=== PATIENT | male | born 1935 | race Caucasian/White ===

== ENCOUNTER 2020-03-26 17:46 | Inpatient (IN) ==
[2020-03-26] MEDS: Cefdinir 300 MG CAPSULE PO SCH (21:24)
[2020-03-26] MEDS: Cholecalciferol (D-3) 1,000 UNIT (25MCG) TABLET PO SCH (21:24)
[2020-03-26] MEDS ORDERED: Ipratropium/Albuterol Neb 3 ML IH PRN (22:00)
[2020-03-26] MEDS: Budesonide/Formoterol 160/4.5 1 PUFF INH IH SCH (22:31)
[2020-03-27 05:37] LABS: Basophils # 0.1 K/mcL (0.0-0.2); Basophils % 0.4 %; Eosinophils # 0.1 K/mcL (0.0-0.6); Eosinophils % 0.3 %; Hematocrit 34.7 % (37.5-50.1); Hemoglobin 11.2 g/dL (12.9-16.9); Immature Granulocytes % 5.5 % (0-4); Lymphocytes # 1.4 K/mcL (0.6-4.6); Lymphocytes % 8.5 %; Mean Corpuscular HGB Conc 32.3 g/dL (31.6-35.5); Mean Corpuscular Hemoglobin 28.3 pg (28.0-33.3); Mean Corpuscular Volume 87.6 fL (83.0-100.0); Monocytes # 0.8 K/mcL (0.0-1.3); Monocytes % 5.2 %; Neutrophils # 12.7 K/mcL (1.6-8.9); Platelet Count 278 K/mcL (140-400); Red Blood Count 3.96 M/mcL (4.19-5.50); Red Cell Distribution Width 15.4 % (11.5-14.5); Segmented Neutrophils % 80.1 %; White Blood Count 15.9 K/mcL (4.3-11.1)
[2020-03-27 05:56] LABS: BUN/Creatinine Ratio 39 (6-26); Blood Urea Nitrogen 22 mg/dL (8-23); Calcium 8.3 mg/dL (8.6-10.3); Carbon Dioxide 36 mEq/L (23-29); Chloride 92 mEq/L (98-107); Glucose 72 mg/dL (70-105); Osmolality,Calculated 274 (280-300); Potassium 3.7 mEq/L (3.5-5.1); Sodium 131 mEq/L (136-145); eGFR For African Americans > 60 (> 60); eGFR For Non-African Americans > 60 (> 60)
[2020-03-27 06:12] LABS: Anisocytosis 1+ (Not Present); Platelet Estimate Normal (Normal); Toxic Granulation Present (Not Present)
[2020-03-27] MEDS: Budesonide/Formoterol 160/4.5 1 PUFF INH IH SCH ×2 (07:53→21:49)
[2020-03-27] MEDS ORDERED: NON-FORMULARY MEDICATION 1 EACH EACH (Losartan/Hydrochlorothiazide [Losartan-Hctz 100-12.5 PO SCH (09:00)
[2020-03-27] MEDS: *HR* Metformin 500 MG TABLET PO SCH (09:27)
[2020-03-27] MEDS: Cholecalciferol (D-3) 1,000 UNIT (25MCG) TABLET PO SCH (09:27)
[2020-03-27] MEDS: hydroCHLOROthiazide 25 MG TABLET PO SCH (09:27)
[2020-03-27] MEDS: Cefdinir 300 MG CAPSULE PO SCH ×2 (09:27→20:15)
[2020-03-27] MEDS: levoFLOXacin 750 MG TABLET PO SCH (09:27)
[2020-03-27] MEDS: Metoprolol XL (24 HR) Succ 25 MG TAB.ER.24H PO SCH (09:28)
[2020-03-27] MEDS: amLODIPine 5 MG TABLET PO SCH (09:28)
[2020-03-27] MEDS: D3 PO SCH (09:28)
[2020-03-27] MEDS: (Ubidecarenone/Vit E/Vit E Mix [Co-Enzyme Q10 100 Mg PO SCH (09:28)
[2020-03-27] MEDS: GLUCOSAMINE PO SCH (09:28)
[2020-03-27] MEDS: BOSWELLIA SERRA PO SCH (09:28)
[2020-03-27] MEDS ORDERED: Dextrose Gel 15 GM/37.5 ML TUBE PO PRN ×2 (21:43)
[2020-03-27] MEDS ORDERED: D5% in Water 1,000 ML IVC PRN (21:43)
[2020-03-27] MEDS ORDERED: *HR* Dextrose 50 % in Water (Vial) 50 ML VIAL IVP PRN (21:43)
[2020-03-28] MEDS: Insulin LISPRO 300 UNITS/3 ML VIAL SUBQ SCH ×4 (07:53→22:01)
[2020-03-28] MEDS: Budesonide/Formoterol 160/4.5 1 PUFF INH IH SCH ×2 (07:58→23:31)
[2020-03-28] MEDS: levoFLOXacin 750 MG TABLET PO SCH (08:31)
[2020-03-28] MEDS: hydroCHLOROthiazide 25 MG TABLET PO SCH (08:31)
[2020-03-28] MEDS: amLODIPine 5 MG TABLET PO SCH (08:32)
[2020-03-28] MEDS: D3 PO SCH (08:32)
[2020-03-28] MEDS: GLUCOSAMINE PO SCH (08:32)
[2020-03-28] MEDS: Cholecalciferol (D-3) 1,000 UNIT (25MCG) TABLET PO SCH (08:32)
[2020-03-28] MEDS: *HR* Metformin 500 MG TABLET PO SCH (08:32)
[2020-03-28] MEDS: BOSWELLIA SERRA PO SCH (08:32)
[2020-03-28] MEDS: Metoprolol XL (24 HR) Succ 25 MG TAB.ER.24H PO SCH (08:32)
[2020-03-28] MEDS: (Ubidecarenone/Vit E/Vit E Mix [Co-Enzyme Q10 100 Mg PO SCH (08:32)
[2020-03-28] MEDS: Cefdinir 300 MG CAPSULE PO SCH ×2 (08:32→22:05)
[2020-03-29] MEDS: Insulin LISPRO 300 UNITS/3 ML VIAL SUBQ SCH ×4 (08:41→20:39)
[2020-03-29] MEDS: Cefdinir 300 MG CAPSULE PO SCH ×2 (08:42→20:38)
[2020-03-29] MEDS: levoFLOXacin 750 MG TABLET PO SCH (08:42)
[2020-03-29] MEDS: Metoprolol XL (24 HR) Succ 25 MG TAB.ER.24H PO SCH (08:43)
[2020-03-29] MEDS: hydroCHLOROthiazide 25 MG TABLET PO SCH (08:43)
[2020-03-29] MEDS: amLODIPine 5 MG TABLET PO SCH (08:43)
[2020-03-29] MEDS: Cholecalciferol (D-3) 1,000 UNIT (25MCG) TABLET PO SCH (08:43)
[2020-03-29] MEDS: BOSWELLIA SERRA PO SCH (08:44)
[2020-03-29] MEDS: D3 PO SCH (08:44)
[2020-03-29] MEDS: *HR* Metformin 500 MG TABLET PO SCH (08:44)
[2020-03-29] MEDS: GLUCOSAMINE PO SCH (08:44)
[2020-03-29] MEDS: (Ubidecarenone/Vit E/Vit E Mix [Co-Enzyme Q10 100 Mg PO SCH (08:44)
[2020-03-29] MEDS: Budesonide/Formoterol 160/4.5 1 PUFF INH IH SCH ×2 (10:41→20:58)
[2020-03-30] MEDS: Insulin LISPRO 300 UNITS/3 ML VIAL SUBQ SCH ×4 (08:02→20:30)
[2020-03-30] MEDS: Budesonide/Formoterol 160/4.5 1 PUFF INH IH SCH ×2 (09:36→23:04)
[2020-03-30] MEDS: amLODIPine 5 MG TABLET PO SCH (10:19)
[2020-03-30] MEDS: levoFLOXacin 750 MG TABLET PO SCH (10:20)
[2020-03-30] MEDS: *HR* Metformin 500 MG TABLET PO SCH (10:20)
[2020-03-30] MEDS: hydroCHLOROthiazide 25 MG TABLET PO SCH (10:20)
[2020-03-30] MEDS: D3 PO SCH (10:21)
[2020-03-30] MEDS: Metoprolol XL (24 HR) Succ 25 MG TAB.ER.24H PO SCH (10:21)
[2020-03-30] MEDS: GLUCOSAMINE PO SCH (10:21)
[2020-03-30] MEDS: Cefdinir 300 MG CAPSULE PO SCH ×2 (10:21→20:30)
[2020-03-30] MEDS: (Ubidecarenone/Vit E/Vit E Mix [Co-Enzyme Q10 100 Mg PO SCH (10:21)
[2020-03-30] MEDS: BOSWELLIA SERRA PO SCH (10:21)
[2020-03-30] MEDS: Cholecalciferol (D-3) 1,000 UNIT (25MCG) TABLET PO SCH (10:21)
[2020-03-31] MEDS: Insulin LISPRO 300 UNITS/3 ML VIAL SUBQ SCH ×4 (09:17→20:13)
[2020-03-31] MEDS: levoFLOXacin 750 MG TABLET PO SCH (09:18)
[2020-03-31] MEDS: Metoprolol XL (24 HR) Succ 25 MG TAB.ER.24H PO SCH (09:18)
[2020-03-31] MEDS: hydroCHLOROthiazide 25 MG TABLET PO SCH (09:18)
[2020-03-31] MEDS: Cefdinir 300 MG CAPSULE PO SCH ×2 (09:18→20:13)
[2020-03-31] MEDS: Cholecalciferol (D-3) 1,000 UNIT (25MCG) TABLET PO SCH (09:18)
[2020-03-31] MEDS: amLODIPine 5 MG TABLET PO SCH (09:18)
[2020-03-31] MEDS: (Ubidecarenone/Vit E/Vit E Mix [Co-Enzyme Q10 100 Mg PO SCH (09:19)
[2020-03-31] MEDS: D3 PO SCH (09:19)
[2020-03-31] MEDS: BOSWELLIA SERRA PO SCH (09:19)
[2020-03-31] MEDS: GLUCOSAMINE PO SCH (09:19)
[2020-03-31] MEDS: *HR* Metformin 500 MG TABLET PO SCH (09:19)
[2020-03-31] MEDS: Budesonide/Formoterol 160/4.5 1 PUFF INH IH SCH ×2 (10:45→22:25)
[2020-04-01 06:15] LABS: Hematocrit 30.7 % (37.5-50.1); Hemoglobin 10.1 g/dL (12.9-16.9); Mean Corpuscular HGB Conc 32.9 g/dL (31.6-35.5); Mean Corpuscular Hemoglobin 28.3 pg (28.0-33.3); Mean Platelet Volume 9.6 fL (9.4-12.4); Platelet Count 164 K/mcL (140-400); Red Blood Count 3.57 M/mcL (4.19-5.50); Red Cell Distribution Width 15.3 % (11.5-14.5); White Blood Count 4.6 K/mcL (4.3-11.1)
[2020-04-01 06:40] LABS: BUN/Creatinine Ratio 34 (6-26); Blood Urea Nitrogen 21 mg/dL (8-23); Calcium 8.2 mg/dL (8.6-10.3); Carbon Dioxide 35 mEq/L (23-29); Chloride 93 mEq/L (98-107); Glucose 92 mg/dL (70-105); Osmolality,Calculated 275 (280-300); Potassium 4.2 mEq/L (3.5-5.1); Sodium 131 mEq/L (136-145); eGFR For African Americans > 60 (> 60); eGFR For Non-African Americans > 60 (> 60)
[2020-04-01] MEDS: Budesonide/Formoterol 160/4.5 1 PUFF INH IH SCH ×2 (08:42→21:22)
[2020-04-01] MEDS: hydroCHLOROthiazide 25 MG TABLET PO SCH (10:05)
[2020-04-01] MEDS: levoFLOXacin 750 MG TABLET PO SCH (10:05)
[2020-04-01] MEDS: Metoprolol XL (24 HR) Succ 25 MG TAB.ER.24H PO SCH (10:05)
[2020-04-01] MEDS: Cholecalciferol (D-3) 1,000 UNIT (25MCG) TABLET PO SCH (10:05)
[2020-04-01] MEDS: Cefdinir 300 MG CAPSULE PO SCH ×2 (10:06→20:05)
[2020-04-01] MEDS: *HR* Metformin 500 MG TABLET PO SCH (10:06)
[2020-04-01] MEDS: amLODIPine 5 MG TABLET PO SCH (10:06)
[2020-04-01] MEDS: (Ubidecarenone/Vit E/Vit E Mix [Co-Enzyme Q10 100 Mg PO SCH (10:08)
[2020-04-01] MEDS: GLUCOSAMINE PO SCH (10:08)
[2020-04-01] MEDS: BOSWELLIA SERRA PO SCH (10:08)
[2020-04-01] MEDS: Insulin LISPRO 300 UNITS/3 ML VIAL SUBQ SCH ×4 (10:08→20:06)
[2020-04-01] MEDS: D3 PO SCH (10:08)
[2020-04-02] MEDS: Insulin LISPRO 300 UNITS/3 ML VIAL SUBQ SCH ×4 (07:21→20:50)
[2020-04-02] MEDS: Metoprolol XL (24 HR) Succ 25 MG TAB.ER.24H PO SCH (08:03)
[2020-04-02] MEDS: Cefdinir 300 MG CAPSULE PO SCH ×2 (08:03→20:50)
[2020-04-02] MEDS: *HR* Metformin 500 MG TABLET PO SCH (08:03)
[2020-04-02] MEDS: Cholecalciferol (D-3) 1,000 UNIT (25MCG) TABLET PO SCH (08:03)
[2020-04-02] MEDS: levoFLOXacin 750 MG TABLET PO SCH (08:03)
[2020-04-02] MEDS: amLODIPine 5 MG TABLET PO SCH (08:03)
[2020-04-02] MEDS: BOSWELLIA SERRA PO SCH (08:06)
[2020-04-02] MEDS: D3 PO SCH (08:06)
[2020-04-02] MEDS: (Ubidecarenone/Vit E/Vit E Mix [Co-Enzyme Q10 100 Mg PO SCH (08:06)
[2020-04-02] MEDS: GLUCOSAMINE PO SCH (08:06)
[2020-04-02] MEDS: hydroCHLOROthiazide 25 MG TABLET PO SCH (08:07)
[2020-04-02] MEDS: Budesonide/Formoterol 160/4.5 1 PUFF INH IH SCH ×2 (08:46→21:35)
[2020-04-03 06:52] VITALS: BP 121/67
[2020-04-03] MEDS: Insulin LISPRO 300 UNITS/3 ML VIAL SUBQ SCH ×2 (07:24→11:51)
[2020-04-03] MEDS: *HR* Metformin 500 MG TABLET PO SCH (07:40)
[2020-04-03] MEDS: hydroCHLOROthiazide 25 MG TABLET PO SCH (09:01)
[2020-04-03] MEDS: amLODIPine 5 MG TABLET PO SCH (09:02)
[2020-04-03] MEDS: Cholecalciferol (D-3) 1,000 UNIT (25MCG) TABLET PO SCH (09:03)
[2020-04-03] MEDS: Metoprolol XL (24 HR) Succ 25 MG TAB.ER.24H PO SCH (09:03)
[2020-04-03] MEDS: levoFLOXacin 750 MG TABLET PO SCH (09:04)
[2020-04-03] MEDS: (Ubidecarenone/Vit E/Vit E Mix [Co-Enzyme Q10 100 Mg PO SCH (09:04)
[2020-04-03] MEDS: BOSWELLIA SERRA PO SCH (09:04)
[2020-04-03] MEDS: GLUCOSAMINE PO SCH (09:04)
[2020-04-03] MEDS: D3 PO SCH (09:04)
[2020-04-03] MEDS: Budesonide/Formoterol 160/4.5 1 PUFF INH IH SCH (11:13)
== END 2020-04-03 12:59 | disposition home health service (06) | DRG 189 ==
LOC: INPPIK 19:33
PROVIDERS: ADMIT Family Medicine; ATTEND Family Medicine

== ENCOUNTER 2020-12-30 17:39 | Inpatient (IN) ==
[2020-12-30] MEDS ORDERED: Apixaban 5 MG TABLET PO SCH (21:00)
[2020-12-30] MEDS: Budesonide/Formoterol 160/4.5 1 PUFF INH IH SCH (21:21)
[2020-12-30] MEDS: Furosemide 20 MG TABLET PO SCH (21:21)
[2020-12-31 08:00] LABS: Basophils % 0.1 %; Eosinophils % 0.1 %; Hematocrit 30.4 % (37.5-50.1); Hemoglobin 9.8 g/dL (12.9-16.9); Immature Granulocytes % 0.7 % (0-4); Lymphocytes % 7.1 %; Mean Corpuscular HGB Conc 32.2 g/dL (31.6-35.5); Mean Corpuscular Hemoglobin 28.7 pg (28.0-33.3); Mean Corpuscular Volume 89.1 fL (83.0-100.0); Mean Platelet Volume 11.4 fL (9.4-12.4); Monocytes # 1.3 K/mcL (0.0-1.3); Monocytes % 9.4 %; Neutrophils # 11.4 K/mcL (1.6-8.9); Platelet Count 206 K/mcL (140-400); Red Blood Count 3.41 M/mcL (4.19-5.50); Segmented Neutrophils % 82.6 %; White Blood Count 13.8 K/mcL (4.3-11.1)
[2020-12-31 09:12] LABS: BUN/Creatinine Ratio 56 (6-26); Blood Urea Nitrogen 49 mg/dL (8-23); Calcium 8.6 mg/dL (8.6-10.3); Carbon Dioxide 35 mEq/L (23-29); Chloride 91 mEq/L (98-107); Glucose 109 mg/dL (70-105); Osmolality,Calculated 288 (280-300); Potassium 4.6 mEq/L (3.5-5.1); Sodium 132 mEq/L (136-145); eGFR For African Americans > 60 (> 60); eGFR For Non-African Americans > 60 (> 60)
[2020-12-31] MEDS: amLODIPine 5 MG TABLET PO SCH (09:12)
[2020-12-31] MEDS: Cholecalciferol (D-3) 1,000 UNIT (25MCG) TABLET PO SCH (09:12)
[2020-12-31] MEDS: Losartan/HCTZ 50-12.5 TABLET PO SCH (09:12)
[2020-12-31] MEDS: Furosemide 20 MG TABLET PO SCH ×2 (09:13→17:16)
[2020-12-31] MEDS: GLUCOSAMINE PO SCH (09:13)
[2020-12-31] MEDS: BOSWELLIA SERRA PO SCH (09:13)
[2020-12-31] MEDS: predniSONE 10 MG TABLET PO SCH (09:13)
[2020-12-31] MEDS: D3 PO SCH (09:13)
[2020-12-31] MEDS: Metoprolol XL (24 HR) Succ 25 MG TAB.ER.24H PO SCH (09:13)
[2020-12-31] MEDS: Budesonide/Formoterol 160/4.5 1 PUFF INH IH SCH ×2 (10:26→21:09)
[2020-12-31] MEDS ORDERED: *HR* Metformin 500 MG TABLET PO SCH ×2 (17:00→18:00)
[2020-12-31] MEDS ORDERED: *HR* Dextrose 50 % in Water (Syg) 50 ML SYRINGE IVP PRN (17:25)
[2020-12-31] MEDS ORDERED: D5% in Water 1,000 ML IVC PRN (17:25)
[2020-12-31] MEDS ORDERED: Dextrose Gel 15 GM/37.5 ML TUBE PO PRN ×2 (17:25)
[2020-12-31] MEDS: Insulin LISPRO 300 UNITS/3 ML VIAL SUBQ SCH ×2 (17:34→21:46)
[2020-12-31] MEDS: Ipratropium/Albuterol Neb 3 ML IH PRN (21:59)
[2021-01-01] MEDS: Losartan/HCTZ 50-12.5 TABLET PO SCH (07:44)
[2021-01-01] MEDS: amLODIPine 5 MG TABLET PO SCH ×2 (07:44→08:41)
[2021-01-01] MEDS: Metoprolol XL (24 HR) Succ 25 MG TAB.ER.24H PO SCH (07:45)
[2021-01-01] MEDS: Insulin LISPRO 300 UNITS/3 ML VIAL SUBQ SCH ×4 (08:14→21:17)
[2021-01-01] MEDS: predniSONE 10 MG TABLET PO SCH (08:28)
[2021-01-01] MEDS: Furosemide 20 MG TABLET PO SCH ×2 (08:28→17:27)
[2021-01-01] MEDS: GLUCOSAMINE PO SCH (08:42)
[2021-01-01] MEDS: BOSWELLIA SERRA PO SCH (08:42)
[2021-01-01] MEDS: D3 PO SCH (08:42)
[2021-01-01] MEDS: Budesonide/Formoterol 160/4.5 1 PUFF INH IH SCH ×2 (09:42→21:21)
[2021-01-01] MEDS: Ipratropium/Albuterol Neb 3 ML IH PRN ×2 (13:17→21:22)
[2021-01-02] MEDS: Furosemide 20 MG TABLET PO SCH ×2 (08:11→16:31)
[2021-01-02] MEDS: Cholecalciferol (D-3) 1,000 UNIT (25MCG) TABLET PO SCH (08:11)
[2021-01-02] MEDS: Losartan/HCTZ 50-12.5 TABLET PO SCH (08:11)
[2021-01-02] MEDS: Metoprolol XL (24 HR) Succ 25 MG TAB.ER.24H PO SCH (08:11)
[2021-01-02] MEDS: D3 PO SCH (08:12)
[2021-01-02] MEDS: amLODIPine 5 MG TABLET PO SCH (08:12)
[2021-01-02] MEDS: predniSONE 10 MG TABLET PO SCH (08:12)
[2021-01-02] MEDS: Insulin LISPRO 300 UNITS/3 ML VIAL SUBQ SCH ×4 (08:12→20:37)
[2021-01-02] MEDS: BOSWELLIA SERRA PO SCH (08:12)
[2021-01-02] MEDS: GLUCOSAMINE PO SCH (08:12)
[2021-01-02] MEDS: Budesonide/Formoterol 160/4.5 1 PUFF INH IH SCH ×2 (09:23→22:11)
[2021-01-02] MEDS: Ipratropium/Albuterol Neb 3 ML IH PRN (22:11)
[2021-01-03] MEDS: Budesonide/Formoterol 160/4.5 1 PUFF INH IH SCH ×2 (09:03→20:22)
[2021-01-03] MEDS: Ipratropium/Albuterol Neb 3 ML IH PRN ×2 (09:05→20:22)
[2021-01-03] MEDS: Insulin LISPRO 300 UNITS/3 ML VIAL SUBQ SCH ×4 (09:10→20:41)
[2021-01-03] MEDS: Metoprolol XL (24 HR) Succ 25 MG TAB.ER.24H PO SCH (09:18)
[2021-01-03] MEDS: Furosemide 20 MG TABLET PO SCH ×2 (09:18→17:32)
[2021-01-03] MEDS: Losartan/HCTZ 50-12.5 TABLET PO SCH (09:18)
[2021-01-03] MEDS: predniSONE 10 MG TABLET PO SCH (09:18)
[2021-01-03] MEDS: amLODIPine 5 MG TABLET PO SCH (09:18)
[2021-01-03] MEDS: GLUCOSAMINE PO SCH (09:25)
[2021-01-03] MEDS: BOSWELLIA SERRA PO SCH (09:25)
[2021-01-03] MEDS: D3 PO SCH (09:25)
[2021-01-03] MEDS: Apixaban 5 MG TABLET PO SCH (21:39)
[2021-01-04] MEDS: Losartan/HCTZ 50-12.5 TABLET PO SCH (08:34)
[2021-01-04] MEDS: Furosemide 20 MG TABLET PO SCH ×2 (08:34→16:43)
[2021-01-04] MEDS: predniSONE 10 MG TABLET PO SCH (08:34)
[2021-01-04] MEDS: Cholecalciferol (D-3) 1,000 UNIT (25MCG) TABLET PO SCH (08:34)
[2021-01-04] MEDS: amLODIPine 5 MG TABLET PO SCH (08:34)
[2021-01-04] MEDS: Apixaban 5 MG TABLET PO SCH ×2 (08:34→21:27)
[2021-01-04] MEDS: Metoprolol XL (24 HR) Succ 25 MG TAB.ER.24H PO SCH (08:34)
[2021-01-04] MEDS: Insulin LISPRO 300 UNITS/3 ML VIAL SUBQ SCH ×4 (08:35→21:26)
[2021-01-04] MEDS: D3 PO SCH (08:35)
[2021-01-04] MEDS: BOSWELLIA SERRA PO SCH (08:35)
[2021-01-04] MEDS: GLUCOSAMINE PO SCH (08:35)
[2021-01-04] MEDS: Triamcinolone Acet 0.1% CRM 15 GM TUBE TP SCH (09:15)
[2021-01-04] MEDS: Budesonide/Formoterol 160/4.5 1 PUFF INH IH SCH ×2 (09:45→20:41)
[2021-01-04] MEDS: Ipratropium/Albuterol Neb 3 ML IH PRN ×2 (09:45→20:40)
[2021-01-05 07:53] LABS: Hemoglobin 9.1 g/dL (12.9-16.9); Mean Corpuscular HGB Conc 31.4 g/dL (31.6-35.5); Mean Corpuscular Hemoglobin 28.3 pg (28.0-33.3); Mean Corpuscular Volume 90.3 fL (83.0-100.0); Mean Platelet Volume 10.8 fL (9.4-12.4); Platelet Count 222 K/mcL (140-400); Red Blood Count 3.21 M/mcL (4.19-5.50); Red Cell Distribution Width 14.7 % (11.5-14.5); White Blood Count 9.8 K/mcL (4.3-11.1)
[2021-01-05 08:17] LABS: BUN/Creatinine Ratio 33 (6-26); Blood Urea Nitrogen 26 mg/dL (8-23); Calcium 8.4 mg/dL (8.6-10.3); Carbon Dioxide 40 mEq/L (23-29); Chloride 92 mEq/L (98-107); Glucose 96 mg/dL (70-105); Osmolality,Calculated 287 (280-300); Potassium 3.9 mEq/L (3.5-5.1); Sodium 136 mEq/L (136-145); eGFR For African Americans > 60 (> 60); eGFR For Non-African Americans > 60 (> 60)
[2021-01-05] MEDS: Furosemide 20 MG TABLET PO SCH ×2 (09:05→17:47)
[2021-01-05] MEDS: Losartan/HCTZ 50-12.5 TABLET PO SCH (09:05)
[2021-01-05] MEDS: Apixaban 5 MG TABLET PO SCH ×2 (09:05→21:21)
[2021-01-05] MEDS: Metoprolol XL (24 HR) Succ 25 MG TAB.ER.24H PO SCH (09:06)
[2021-01-05] MEDS: Insulin LISPRO 300 UNITS/3 ML VIAL SUBQ SCH ×4 (09:06→21:15)
[2021-01-05] MEDS: Triamcinolone Acet 0.1% CRM 15 GM TUBE TP SCH (09:06)
[2021-01-05] MEDS: predniSONE 10 MG TABLET PO SCH (09:06)
[2021-01-05] MEDS: D3 PO SCH (09:06)
[2021-01-05] MEDS: amLODIPine 5 MG TABLET PO SCH (09:06)
[2021-01-05] MEDS: BOSWELLIA SERRA PO SCH (09:06)
[2021-01-05] MEDS: GLUCOSAMINE PO SCH (09:06)
[2021-01-05] MEDS: Ipratropium/Albuterol Neb 3 ML IH PRN ×2 (10:48→22:30)
[2021-01-05] MEDS: Budesonide/Formoterol 160/4.5 1 PUFF INH IH SCH ×2 (10:48→22:30)
[2021-01-06] MEDS: Insulin LISPRO 300 UNITS/3 ML VIAL SUBQ SCH ×3 (08:51→20:45)
[2021-01-06] MEDS: predniSONE 10 MG TABLET PO SCH (09:04)
[2021-01-06] MEDS: Apixaban 5 MG TABLET PO SCH ×2 (09:04→21:00)
[2021-01-06] MEDS: Losartan/HCTZ 50-12.5 TABLET PO SCH (09:04)
[2021-01-06] MEDS: Metoprolol XL (24 HR) Succ 25 MG TAB.ER.24H PO SCH (09:04)
[2021-01-06] MEDS: BOSWELLIA SERRA PO SCH (09:05)
[2021-01-06] MEDS: Furosemide 20 MG TABLET PO SCH ×2 (09:05→17:42)
[2021-01-06] MEDS: D3 PO SCH (09:05)
[2021-01-06] MEDS: GLUCOSAMINE PO SCH (09:05)
[2021-01-06] MEDS: Cholecalciferol (D-3) 1,000 UNIT (25MCG) TABLET PO SCH (09:05)
[2021-01-06] MEDS: amLODIPine 5 MG TABLET PO SCH (09:05)
[2021-01-06] MEDS: Triamcinolone Acet 0.1% CRM 15 GM TUBE TP SCH (09:06)
[2021-01-06] MEDS: Budesonide/Formoterol 160/4.5 1 PUFF INH IH SCH ×2 (09:09→22:43)
[2021-01-07] MEDS: Insulin LISPRO 300 UNITS/3 ML VIAL SUBQ SCH ×4 (08:21→19:49)
[2021-01-07] MEDS: amLODIPine 5 MG TABLET PO SCH (08:22)
[2021-01-07] MEDS: Losartan/HCTZ 50-12.5 TABLET PO SCH (08:22)
[2021-01-07] MEDS: Furosemide 20 MG TABLET PO SCH ×2 (08:22→17:14)
[2021-01-07] MEDS: Apixaban 5 MG TABLET PO SCH ×2 (08:22→21:06)
[2021-01-07] MEDS: Metoprolol XL (24 HR) Succ 25 MG TAB.ER.24H PO SCH (08:22)
[2021-01-07] MEDS: predniSONE 10 MG TABLET PO SCH (08:22)
[2021-01-07] MEDS: BOSWELLIA SERRA PO SCH (08:23)
[2021-01-07] MEDS: D3 PO SCH (08:23)
[2021-01-07] MEDS: GLUCOSAMINE PO SCH (08:23)
[2021-01-07] MEDS: Triamcinolone Acet 0.1% CRM 15 GM TUBE TP SCH (08:24)
[2021-01-07] MEDS: Budesonide/Formoterol 160/4.5 1 PUFF INH IH SCH ×2 (09:51→20:29)
[2021-01-08] MEDS: predniSONE 10 MG TABLET PO SCH (08:42)
[2021-01-08] MEDS: Apixaban 5 MG TABLET PO SCH ×2 (08:42→20:27)
[2021-01-08] MEDS: Losartan/HCTZ 50-12.5 TABLET PO SCH (08:42)
[2021-01-08] MEDS: Cholecalciferol (D-3) 1,000 UNIT (25MCG) TABLET PO SCH (08:42)
[2021-01-08] MEDS: Metoprolol XL (24 HR) Succ 25 MG TAB.ER.24H PO SCH (08:43)
[2021-01-08] MEDS: Furosemide 20 MG TABLET PO SCH ×2 (08:43→16:22)
[2021-01-08] MEDS: amLODIPine 5 MG TABLET PO SCH (08:43)
[2021-01-08] MEDS: Insulin LISPRO 300 UNITS/3 ML VIAL SUBQ SCH ×4 (08:43→20:25)
[2021-01-08] MEDS: GLUCOSAMINE PO SCH (08:46)
[2021-01-08] MEDS: BOSWELLIA SERRA PO SCH (08:46)
[2021-01-08] MEDS: D3 PO SCH (08:46)
[2021-01-08] MEDS: Triamcinolone Acet 0.1% CRM 15 GM TUBE TP SCH (08:46)
[2021-01-08 10:19] LABS: BUN/Creatinine Ratio 29 (6-26); Blood Urea Nitrogen 25 mg/dL (8-23); Calcium 8.5 mg/dL (8.6-10.3); Carbon Dioxide 37 mEq/L (23-29); Chloride 92 mEq/L (98-107); Glucose 166 mg/dL (70-105); Osmolality,Calculated 288 (280-300); Potassium 3.5 mEq/L (3.5-5.1); Sodium 135 mEq/L (136-145); eGFR For African Americans > 60 (> 60); eGFR For Non-African Americans > 60 (> 60)
[2021-01-08] MEDS: Budesonide/Formoterol 160/4.5 1 PUFF INH IH SCH ×2 (10:26→20:36)
[2021-01-09] MEDS: Apixaban 5 MG TABLET PO SCH ×2 (08:38→20:29)
[2021-01-09] MEDS: Furosemide 20 MG TABLET PO SCH ×2 (08:38→17:12)
[2021-01-09] MEDS: Losartan/HCTZ 50-12.5 TABLET PO SCH (08:38)
[2021-01-09] MEDS: predniSONE 10 MG TABLET PO SCH (08:38)
[2021-01-09] MEDS: D3 PO SCH (08:39)
[2021-01-09] MEDS: GLUCOSAMINE PO SCH (08:39)
[2021-01-09] MEDS: BOSWELLIA SERRA PO SCH (08:39)
[2021-01-09] MEDS: amLODIPine 5 MG TABLET PO SCH (08:39)
[2021-01-09] MEDS: Metoprolol XL (24 HR) Succ 25 MG TAB.ER.24H PO SCH (08:40)
[2021-01-09] MEDS: Insulin LISPRO 300 UNITS/3 ML VIAL SUBQ SCH ×4 (08:42→20:28)
[2021-01-09] MEDS: Triamcinolone Acet 0.1% CRM 15 GM TUBE TP SCH (08:59)
[2021-01-09] MEDS: Budesonide/Formoterol 160/4.5 1 PUFF INH IH SCH ×2 (10:34→22:22)
[2021-01-10 07:09] VITALS: BP 109/56; PULSE 68; TEMP 96.7
[2021-01-10] MEDS: GLUCOSAMINE PO SCH (08:45)
[2021-01-10] MEDS: BOSWELLIA SERRA PO SCH (08:45)
[2021-01-10] MEDS: Insulin LISPRO 300 UNITS/3 ML VIAL SUBQ SCH ×2 (08:45→12:10)
[2021-01-10] MEDS: D3 PO SCH (08:45)
[2021-01-10] MEDS: Losartan/HCTZ 50-12.5 TABLET PO SCH (08:52)
[2021-01-10] MEDS: amLODIPine 5 MG TABLET PO SCH (08:53)
[2021-01-10] MEDS: Triamcinolone Acet 0.1% CRM 15 GM TUBE TP SCH (08:53)
[2021-01-10] MEDS: Apixaban 5 MG TABLET PO SCH (08:53)
[2021-01-10] MEDS: Metoprolol XL (24 HR) Succ 25 MG TAB.ER.24H PO SCH (08:53)
[2021-01-10] MEDS: Cholecalciferol (D-3) 1,000 UNIT (25MCG) TABLET PO SCH (08:53)
[2021-01-10] MEDS: Furosemide 20 MG TABLET PO SCH (08:53)
[2021-01-10] MEDS: Budesonide/Formoterol 160/4.5 1 PUFF INH IH SCH (09:11)
[2021-01-10 09:17] VITALS: RESP 16; O2SAT 97
== END 2021-01-10 13:40 | disposition home health service (06) | DRG 945 ==
LOC: INPPIK 20:25
PROVIDERS: ADMIT Internal Medicine; ATTEND Internal Medicine